=== PATIENT | female | born 1980 | race Hispanic/Latino ===

== ENCOUNTER 2023-10-22 14:52 | Emergency (ER) | payer SELFPAY ==
[~2023-10-22] VITALS: Ht 157.5 cm; Wt 68.0 kg
[2023-10-22 15:01] VITALS: BP 128/76
[2023-10-22 15:29] LABS: BASO% 0.2 % (0-3); EOS% 0.6 % (0-8); HEMATOCRIT 38.4 % (37.0-47.0); HEMOGLOBIN 12.7 g/dl (12.0-16.0); IMMATURE GRANULOCYTES 0.2 % (0.0-5.0); LYMPH% 31.2 % (15-41); MEAN CELL VOLUME 84.4 fL CALC (80.0-100.0); MEAN CORPUSCULAR HGB 27.9 pG CALC (26.0-32.0); MEAN CORPUSCULAR HGB CONC 33.1 g/dL CAL (32.0-36.0); MONO% 6.3 % (2-13); NEUT# 5.82 thou/uL (2.00-7.15); NEUT% 61.5 % (42-76); RED BLOOD COUNT 4.55 mill/uL (4.20-5.60); RED CELL DISTRI WIDTH 12.7 % (11.5-15.5)
[2023-10-22] MEDS ORDERED: LIDOCAINE VISCOUS 2% 15 ML UDC PO ONE (15:30)
[2023-10-22] MEDS ORDERED: ALUM & MAG HYDROX-SIMETHICONE 30 ML PO ONE (15:30)
[2023-10-22 15:37] VITALS: BP 114/78
[2023-10-22 15:44] LABS: ALBUMIN 4.6 g/dL (3.2-5.0); ALKALINE PHOSPHATASE 96 u/l (38-126); ANION GAP 12 (6-22 (CALC)); BILIRUBIN, TOTAL 0.5 mg/dL (0.02-1.3); BUN 13 mg/dL (7-17); BUN/CREATININE RATIO 18 (12-20 (CALC)); CARBON DIOXIDE 25 mmol/l (22-30); CHLORIDE 109 mmol/l (95-108); CREATININE 0.7 mg/dL (0.5-1.0); ESTIMATED GFR 111 ML/MIN (>=90 (CALC)); LIPASE 128 u/l (23-300); POTASSIUM 4.1 mmol/l (3.5-5.1); SGOT/AST 123 u/l (14-36); SODIUM 142 mmol/l (137-146); TOTAL PROTEIN 8.7 g/dL (6.3-8.2)
[2023-10-22 15:45] VITALS: BP 117/74
[2023-10-22 16:00] VITALS: BP 124/80
[2023-10-22] MEDS ORDERED: Pantoprazole Sodium 40 MG VIAL (Protonix) IV ONE (16:05)
[2023-10-22 16:15] VITALS: BP 122/74
[2023-10-22 16:20] LABS: URINE BILIRUBIN - DIPSTICK Negative (NEGATIVE); URINE BLOOD DIPSTICK Moderate (NEGATIVE); URINE GLUCOSE - DIPSTICK Negative (NEGATIVE); URINE KETONE Negative (NEGATIVE); URINE NITRITE - DIPSTICK Negative (Negative); URINE PROTEIN - DIPSTICK 30 mg/dL (NEG-TRACE); URINE SPECIFIC GRAVITY 1.025; URINE UROBILINOGEN - DIPSTICK 0.2 E.U./dL (0.2)
[2023-10-22 16:21] LABS: URINE COLOR Yellow
[2023-10-22 16:23] LABS: URINE LEUK ESTERASE Small (NEGATIVE)
[2023-10-22 16:34] LABS: URINE BACTERIA FEW hpf; URINE SQUAMOUS EPITHELIAL CELL MODERATE EPI/hpf (0-FEW)
[2023-10-22 16:36] LABS: URINE RBC 0-2 RBC/hpf (0-5)
[2023-10-22] MEDS ORDERED: OMEPRAZOLE DR40 MG PO (16:51)
[2023-10-22 17:05] VITALS: BP 122/74
== END 2023-10-22 17:21 | disposition home or self-care (01) | DRG 392 ==
LOC: ED 14:52
PROVIDERS: Family Medicine
DX: R10.13 Epigastric pain (principal)
CPT/HCPCS: J2470

== ENCOUNTER 2023-12-15 08:40 | Emergency (ER) | payer SELFPAY ==
[~2023-12-15] VITALS: Ht 157.5 cm; Wt 68.0 kg
[2023-12-15] VITALS (11 sets, daily range): BP systolic 105–130; BP diastolic 68–88
[~2023-12-15 08:40] MED LIST: OMEPRAZOLE DR40 MG PO
[2023-12-15] MEDS ORDERED: Pantoprazole Sodium 40 MG VIAL (Protonix) IV STA (09:08)
[2023-12-15 09:35] LABS: BASO% 0.3 % (0-3); HEMATOCRIT 37.1 % (37.0-47.0); HEMOGLOBIN 11.9 g/dl (12.0-16.0); IMMATURE GRANULOCYTES 0.1 % (0.0-5.0); MEAN CELL VOLUME 86.3 fL CALC (80.0-100.0); MEAN CORPUSCULAR HGB 27.7 pG CALC (26.0-32.0); MEAN CORPUSCULAR HGB CONC 32.1 g/dL CAL (32.0-36.0); MONO% 4.9 % (2-13); NEUT# 6.39 thou/uL (2.00-7.15); NEUT% 66.7 % (42-76); RED BLOOD COUNT 4.3 mill/uL (4.20-5.60); RED CELL DISTRI WIDTH 13.2 % (11.5-15.5)
[2023-12-15 09:42] LABS: ALBUMIN 4.4 g/dL (3.2-5.0); ALKALINE PHOSPHATASE 104 u/l (38-126); ANION GAP 10 (6-22 (CALC)); BILIRUBIN, TOTAL 0.4 mg/dL (0.02-1.3); BUN 15 mg/dL (7-17); BUN/CREATININE RATIO 22 (12-20 (CALC)); CARBON DIOXIDE 25 mmol/l (22-30); CHLORIDE 109 mmol/l (95-108); CREATININE 0.7 mg/dL (0.5-1.0); ESTIMATED GFR 111 ML/MIN (>=90 (CALC)); LIPASE 90 u/l (23-300); POTASSIUM 3.9 mmol/l (3.5-5.1); SGOT/AST 98 u/l (14-36); SODIUM 141 mmol/l (137-146); TOTAL PROTEIN 8.3 g/dL (6.3-8.2)
[2023-12-15 10:15] LABS: URINE BILIRUBIN - DIPSTICK Negative (NEGATIVE); URINE BLOOD DIPSTICK Moderate (NEGATIVE); URINE GLUCOSE - DIPSTICK Negative (NEGATIVE); URINE KETONE Negative (NEGATIVE); URINE LEUK ESTERASE Trace (NEGATIVE); URINE NITRITE - DIPSTICK Negative (Negative); URINE PROTEIN - DIPSTICK Negative (NEG-TRACE); URINE SPECIFIC GRAVITY >=1.030
[2023-12-15 10:20] LABS: URINE COLOR Yellow
[2023-12-15 10:21] LABS: URINE EPITHELIAL CELLS FEW EPI/hpf (0-FEW); URINE WBC 0-2 WBC/hpf (0-5)
== END 2023-12-15 12:02 | disposition home or self-care (01) | DRG 392 ==
LOC: ED 08:40
PROVIDERS: Family Medicine
DX: R10.13 Epigastric pain (principal)
CPT/HCPCS: J2470

== ENCOUNTER 2024-01-02 08:41 | Emergency (ER) | payer SELFPAY ==
[~2024-01-02] VITALS: Ht 157.5 cm; Wt 72.7 kg
[2024-01-02] VITALS (21 sets, daily range): BP systolic 99–123; BP diastolic 56–81
[2024-01-02] MEDS ORDERED: ALUM & MAG HYDROX-SIMETHICONE 30 ML PO ONE (09:00)
[2024-01-02] MEDS ORDERED: LIDOCAINE VISCOUS 2% 15 ML UDC PO ONE (09:00)
[2024-01-02 09:17] LABS: BASO% 0.3 % (0-3); EOS% 0.9 % (0-8); HEMATOCRIT 37.7 % (37.0-47.0); HEMOGLOBIN 12.2 g/dl (12.0-16.0); IMMATURE GRANULOCYTES 0.1 % (0.0-5.0); LYMPH% 25.1 % (15-41); MEAN CELL VOLUME 86.3 fL CALC (80.0-100.0); MEAN CORPUSCULAR HGB 27.9 pG CALC (26.0-32.0); MEAN CORPUSCULAR HGB CONC 32.4 g/dL CAL (32.0-36.0); MONO% 5.6 % (2-13); NEUT# 5.3 thou/uL (2.00-7.15); RED BLOOD COUNT 4.37 mill/uL (4.20-5.60)
[2024-01-02 09:22] LABS: ALBUMIN 4.4 g/dL (3.2-5.0); BILIRUBIN, TOTAL 0.6 mg/dL (0.02-1.3); CREATININE 0.6 mg/dL (0.5-1.0); POTASSIUM 4.2 mmol/l (3.5-5.1); TOTAL PROTEIN 8.1 g/dL (6.3-8.2)
[2024-01-02 10:43] LABS: URINE BILIRUBIN - DIPSTICK Negative (NEGATIVE); URINE BLOOD DIPSTICK Moderate (NEGATIVE); URINE GLUCOSE - DIPSTICK Negative (NEGATIVE); URINE KETONE Negative (NEGATIVE); URINE LEUK ESTERASE Negative (NEGATIVE); URINE NITRITE - DIPSTICK Negative (Negative); URINE PROTEIN - DIPSTICK 30 mg/dL (NEG-TRACE); URINE SPECIFIC GRAVITY 1.025
[2024-01-02 10:45] LABS: URINE COLOR Yellow
[2024-01-02 10:49] LABS: URINE SQUAMOUS EPITHELIAL CELL MODERATE EPI/hpf (0-FEW); URINE WBC 0-2 WBC/hpf (0-5)
[2024-01-02] MEDS ORDERED: KETOROLAC TROMETHAMINE 30 MG/ML SDV IV ONE (11:35)
== END 2024-01-02 14:10 | disposition home or self-care (01) | DRG 446 ==
LOC: ED 08:41
PROVIDERS: Family Medicine
DX: K80.20 Calculus of gallbladder without cholecystitis without obstruction (principal)